=== PATIENT | female | born 1995 | race Caucasian/White ===

== ENCOUNTER 2019-01-07 13:02 | Inpatient (IN) | payer MEDICAID, OTHER ==
[~2019-01-07] VITALS: Ht 162.6 cm; Wt 79.1 kg
[2019-01-07 13:12] VITALS: Ht 162.6 cm; Wt 79.1 kg
[2019-01-07] MEDS ORDERED: PNV11TAB PO (13:12)
[2019-01-07 13:13] VITALS: BP 122/75; PULSE 92; RESP 19
--- NOTE | 2019-01-07 15:36 | TRIAGE ---
OB Triage Datetime Report Generated by CPN: 01/07/2019 15:36 Datetime: 01/07/2019 15:24 Labor Evaluation Frequency: OCCAS Monitor Mode: External Duration (sec)2399: 40-90 Quality: Mild Pattern: Normal: <= 5 Contractions in 10 Minutes Resting Tone Davy: Relaxed Heart Rate FHR Baseline Rate: 145 Monitor Mode: External US FHR Baseline Changes: No Baseline Change Variability: Moderate 6-25 bpm Accelerations: 15X15 Decelerations: None Category: Category I Datetime: 01/07/2019 14:20 Labor Evaluation Frequency: occas Monitor Mode: Internal Duration (sec)2399: 50-110 Quality: Mild Pattern: Normal: <= 5 Contractions in 10 Minutes Resting Tone Davy: Relaxed Heart Rate FHR Baseline Rate: 145 Monitor Mode: External US FHR Baseline Changes: No Baseline Change Variability: Moderate 6-25 bpm Accelerations: 15X15 Decelerations: None Category: Category I Datetime: 01/07/2019 13:36 Vaginal Exam Dilatation (cms): 0.0 Effacement (%): 0 Station: -3 Exam By: A GHUKASYAN Datetime: 01/07/2019 13:19 Assessment Type: Triage Maternal Assessment Level of Consciousness: Fully Conscious DTR's/Clonus: DTRs 2+; No Clonus Headache: Denies Blurred Vision: No Respiratory Effort: Unlabored; Regular Rhythm; Equal Expansion Breath Sounds, Left: Clear and Equal Breath Sounds, Right: Clear and Equal Nausea/Vomiting: Denies RUQ Epigastric Pain: Denies Lower Extremities Edema: None Degree: None Upper Extremities Edema: None Degree: None Facial Edema: None Fall Risk Assessment History of Falling: (0) No Secondary Diagnosis: (0) No Ambulatory Aid: (0) Bedrest/Nurse Assist IV Therapy: (0) No Gait: (0) Normal/Bedrest/Immobile Mental Status: (0) Oriented to Own Ability Fall Score: 0 Fall Risk Score Definition: No Risk: No action required Labor Evaluation Frequency: occas Monitor Mode: External Duration (sec)2399: 50-90 Quality: Mild Pattern: Normal: <= 5 Contractions in 10 Minutes Resting Tone Davy: Relaxed Heart Rate FHR Baseline Rate: 150 Monitor Mode: External US Variability: Moderate 6-25 bpm Accelerations: 15X15 Decelerations: None Category: Category I Datetime: 01/07/2019 13:18 Time of Arrival: 01/07/2019 12:35 EGA: 40.1 Arrived By: Ambulatory Arrived From: Home Chief Complaint: post dates Movement: Present Contractions: Denies/Absent Rupture of Membranes: Denies Vaginal Bleeding: None Vaginal Discharge: Denies Recent Sexual Intercouse: Denies Abdominal Trauma: Not Applicable Patient Complaints: Other Time Provider Notified: 01/07/2019 13:33 Provider Notified: DR VICTOR Initial Plan: nst
[2019-01-07] MEDS ORDERED: IBUPROFEN 600 MG TAB PO PRN (17:00)
[2019-01-07] MEDS ORDERED: METHYLERGONOVINE 0.2 MG INJ IM PRN (17:00)
[2019-01-07] MEDS ORDERED: OXYTOCIN 30 UNITS/LR 500 ML IV SCH ×2 (17:00)
[2019-01-07] MEDS ORDERED: OXYTOCIN 30 UNITS/LR 500 ML IV PRN (17:00)
[2019-01-07] MEDS ORDERED: BUTORPHANOL 2 MG INJ IV PRN (17:00)
[2019-01-07] MEDS ORDERED: CARBOPROST 250 MCG INJ IM PRN (17:00)
[2019-01-07] MEDS ORDERED: MISOPROSTOL 200 MCG TAB PR PRN (17:00)
[2019-01-07] MEDS ORDERED: LIDOCAINE 1% (MPF) 30 ML INJ INJ PRN (17:00)
[2019-01-07] MEDS: LACTATED RINGER'S 1,000 ML IV SCH ×2 (17:25→23:32)
[2019-01-08] MEDS: MISOPROSTOL 50 MCG CAPSULE PO SCH ×5 (05:52→21:00)
[2019-01-08] MEDS: LACTATED RINGER'S 1,000 ML IV SCH ×3 (07:11→21:22)
[2019-01-08] MEDS ORDERED: MISOPROSTOL 50 MCG CAPSULE PO SCH ×2 (09:00)
[2019-01-08] MEDS ORDERED: OXYTOCIN 30 UNITS/LR 500 ML IV SCH (19:00)
--- NOTE | 2019-01-09 00:54 | PREAC ---
Date/Time of Note Date/Time of Note DATE: 01/09/19 TIME: 00:53 Anesthesia Eval and Record Evaluation Time Pre-Procedure Interview DATE: 01/09/19 TIME: 00:53 Age 23 Sex female NPO: 8 hrs Preoperative diagnosis Planned procedure labor epidural Past Medical History Past Medical History: Includes : : (2), Para: (0), Gestational age: (40.3) Surgery & Anesthesia Issues No known issue Meds Anticoagulation: No Beta Edilberto within 24 hr: No Reason Beta Edilberto not given: Pt. not on B-Edilberto Reported Medications [id number] ( 19) 1 Each Tablet, 1 TAB PO DAILY, TAB 01/07/19 Current Medications Lactated Ringer's 1,000 ml @ 125 mls/hr Q8H IV Last administered on 01/08/19at 21:22; Admin Dose 125 MLS/HR; Start 01/07/19 at 16:46 Butorphanol Tartrate (Stadol) 2 mg Q2H PRN IV .PAIN SCALE 6-10 Last administered on 01/08/19at 21:29; Admin Dose 2 MG; Start 01/07/19 at 17:00 Lidocaine (Xylocaine 1% (Mpf)) 30 ml ONCE PRN INJ .EPISIOTOMY; Start 01/07/19 at 17:00 Oxytocin/Lactated Ringer's 500 ml @ 500 mls/hr ONCE POST IV ; Start 01/07/19 at 17:00 Oxytocin/Lactated Ringer's 500 ml @ 125 mls/hr POST IV ; Start 01/07/19 at 17:00 Ibuprofen (Motrin) 600 mg ONCE PRN PO .PAIN 1-5; Start 01/07/19 at 17:00 Oxytocin/Lactated Ringer's 500 ml @ 0 mls/hr ONCE PRN IV .VAGINAL BLEEDING; Start 01/07/19 at 17:00 Methylergonovine Maleate (Methergine) 0.2 mg ONCE PRN IM .VAGINAL BLEEDING; Start 01/07/19 at 17:00 Carboprost Tromethamine (Hemabate) 250 mcg ONCE PRN IM .VAGINAL BLEEDING; Start 01/07/19 at 17:00 Misoprostol (Cytotec) 1,000 mcg ONCE PRN SC .VAGINAL BLEEDING; Start 6/1/19 at 17:00 Misoprostol (Cytotec 50 Mcg Capsule) 50 mcg Q4 PO Last administered on 01/08/19at 14:55; Admin Dose 50 MCG; Start 01/08/19 at 05:39; Stop 01/09/19 at 01:01 Oxytocin/Lactated Ringer's 500 ml @ 0 mls/hr Q0M IV Last administered on 01/08/19at 19:46; Admin Dose 1 MLS/HR; Start 01/08/19 at 19:00 Meds reviewed: Yes Allergies Coded Allergies: No Known Allergy (Unverified , 01/07/19) Allergies Reviewed: Yes Labs/Studies Labs Reviewed: Reviewed by anesthesiologist Result Diagram: 01/07/19 1823 test: N/A Pre-procedure Exam Last vitals Vital Signs Date Temp Pulse Resp B/P (MAP) Pulse Ox O2 O2 Flow FiO2 Time Delivery Rate 01/07/19 98.6 92 19 122/75 Room Air 13:13 (91) Airway: Adequate mouth opening, Adequate thyromental dist Mallampati: Mallampati II Teeth: Normal Lung: Normal Heart: Normal ASA Physical Status ASA physical status: 2 Emergency: None Planned Anesthetic Neuraxial: Epidural Planned Pain Management Epidural, Parenteral pain med Pre-operative Attestations Prior to commencing anesthesia and surgery, the patient was re-evaluated, there was verification of: *The patient's identity *The results of appropriate recent lab work and preoperative vital signs *The above evaluation not changing prior to induction *Anesthetic plan, risk benefits, alternative and complications discussed with patient/family; questions answered; patient/family understands, accepts and wishes to proceed. MOY MINAYA MD Jan 09, 2019 00:54
[2019-01-09] MEDS ORDERED: FENTAnyl 2MCG/ML-ROPIV 0.2% 100 ML ONE (00:57)
[2019-01-09] MEDS ORDERED: FENTAnyl 2MCG/ML-ROPIV 0.2% 100 ML BAG EPI SCH (01:00)
[2019-01-09] MEDS ORDERED: ONDANSETRON 4 MG INJ IV PRN ×2 (01:00→08:00)
[2019-01-09] MEDS: MISOPROSTOL 50 MCG CAPSULE PO SCH (01:00)
[2019-01-09] MEDS ORDERED: NALOXONE (0.4 MG/ML) INJ IV PRN (01:00)
[2019-01-09] MEDS ORDERED: DIPHENHYDRAMINE 50 MG INJ IV PRN (01:00)
--- NOTE | 2019-01-09 02:13 | PAC ---
Date/Time of Note Date/Time of Note DATE: 01/09/19 TIME: 02:12 Post-Anesthesia Notes Post-Anesthesia Note Last documented vital signs Vital Signs Date Temp Pulse Resp B/P (MAP) Pulse Ox O2 O2 Flow FiO2 Time Delivery Rate 01/07/19 98.6 92 19 122/75 Room Air 13:13 (91) Activity: WNL Respiratory function: WNL Cardiovascular function: WNL Mental status: Baseline Pain reasonably controlled: Yes Hydration appropriate: Yes Nausea/Vomiting absent: Yes Comments BP: 122/64 HR: 78 RR: 15 T: 98.5 SaO2: 100% MOY MINAYA MD Jan 09, 2019 02:13
[2019-01-09] MEDS: LACTATED RINGER'S 1,000 ML IV SCH (02:21)
--- NOTE | 2019-01-09 06:13 | PREOPHP ---
DATE OF ADMISSION: 01/07/2019 HISTORY OF PRESENT ILLNESS: This is a 23-year-old lady, 2, para 0 with 1 . Her EDC is 01/06/2019, at 40 and for 1/7 weeks, admitted to labor and delivery area to rule out labor. She h ad care at Dr. Hernandez's office and the care was uneventful. PAST PERSONAL HISTORY: No history of diabetes, TB, asthma. ALLERGIES: NO ALLERGIES. SOCIAL HISTORY: The patient does not smoke. She does not drink. MEDICATIONS: She does not take any drugs except her iron and vitamins. GYNECOLOGIC HISTORY: She had menarche at the age of 11, every 28 days interval, 3 to 4 days duration , and moderate in amount. FAMILY HISTORY: Noncontributory. OBSTETRICAL HISTORY: She is 2, para 0. She had 1 . REVIEW OF SYSTEMS: CARDIOVASCULAR: No chest pains. RESPIRATORY: No cough. GASTROINTESTINAL: No diarrhea, no vomiting. GENITOURINARY: No dysuria. PHYSICAL EXAMINATION: GENERAL: Reveals a conscious, coherent lady and in not acute distress. VITAL SIGNS: Her blood pressure 120/80, pulse rate 80 per minute, respirations 16 per minute. BREASTS, HEART AND LUNGS: Within normal limits. ABDOMEN: Soft, fundic height 39 cm. heart tones 140 per minute. PELVIC: On admission done by nurse revealed the cervix to be closed, station -3 in cephalic presenta tion with the bag of water intact. EXTREMITIES: No pedal edema. ADMITTING DIAGNOSIS: A 40 and 1/7 weeks intrauterine in very early labor. The patient had an ultrasound done and the estimated weight was 4062 grams. The plans of delivery were explai yissel to the patient by me over the phone and by the nurse asked to go for vaginal delivery. The risks , benefits, and alternatives to vaginal delivery and was explained to both of them and the risks of shoulder dystocia as well was explained to them. The risks of explained to them a s well. Both the patient and the wanted to go to try for a vaginal delivery. As mentioned t he nurse had explained to them and had written about that they understood about the risks of shoulder dystocia. They understand and they like to take the risks. So the patient was observed at first fo r progress since on admission, she was having contractions, so she was not given any medication for h er contraction, and then during the night, she was observed, and in the morning since the contraction s had spaced out, in the morning on January 08, she was started on Cytotec. She received 3 doses of Cy totec, and the last dose of Cytotec was on January 08 at 3:00 p.m. When I checked her at 4:25 p.m., Ju , when I did a pelvic exam, she was 4 cm dilated, 100% effaced, station 0 with the bag of water intact. Good blood issue was noted. The patient and the were advised that I should rupture d the bag of water and number one to check for the type of amniotic fluid she had and to be started o n Pitocin augmentation. Pitocin augmentation cannot be started until 7:00 p.m. The patient and the refused to have the ruptured bag of water. They like to continue with conservative managemen t, so she was continued on conservative management. Dr. Lau has evaluated the patient at 9:00 p.m. o n January 08, she was still 4 cm dilated. She was having pain medication and she was offered epidural. At this point of time, the case was endorsed with Dr. Lau for further care and for delivery. The w hole history was explained to the patient about shoulder dystocia. Dictated By: DELVIS NUNEZ/NTS Conf#: [id number] DID#: [id number] CC: CARLOTTA HERNANDEZ MD;*EndCC*
[2019-01-09] MEDS ORDERED: MINERAL OIL LIGHT 10 ML VIAL TOP PRN (06:30)
[2019-01-09] MEDS: LACTATED RINGER'S 1,000 ML IV* SCH ×3 (08:00→23:52)
[2019-01-09] MEDS ORDERED: CARBOPROST 250 MCG INJ IM PRN (08:00)
[2019-01-09] MEDS ORDERED: METHYLERGONOVINE 0.2 MG INJ IM PRN (08:00)
[2019-01-09] MEDS ORDERED: DIBUCAINE 1% 30 GM OINT TOP PRN (08:00)
[2019-01-09] MEDS ORDERED: OXYTOCIN 30 UNITS/LR 500 ML IV SCH (08:00)
[2019-01-09] MEDS ORDERED: MISOPROSTOL 200 MCG TAB PR PRN (08:00)
[2019-01-09] MEDS ORDERED: BENZOCAINE 20% 56 ML SPRAY TOP PRN (08:00)
[2019-01-09] MEDS ORDERED: WITCH HAZEL/GLYCERIN PAD PR PRN (08:00)
[2019-01-09] MEDS ORDERED: LANOLIN HPA 1 PKT TOP PRN (08:00)
[2019-01-09] MEDS ORDERED: MAGNESIUM HYDROXIDE 30ML CUP PO PRN (08:00)
[2019-01-09] MEDS ORDERED: ACETAMINOPHEN 325 MG TAB PO PRN ×2 (08:00)
[2019-01-09] MEDS ORDERED: OXYTOCIN 30 UNITS/LR 500 ML IV PRN (08:00)
[2019-01-09] MEDS ORDERED: SENNA/DOCUSATE NA (8.6MG/50MG) TAB PO PRN (08:00)
--- NOTE | 2019-01-09 08:00 | LDN ---
Date/Time of Note Date/Time of Note DATE: 01/09/19 TIME: 07:58 Delivery Summary Weeks of Gestation Term gestation Placenta Delivered: Spontaneously Meconium: none Episiotomy: Yes Laceration repair: Medial episiotomy repaired with 2-0 Vicryl sutures in layered fashion Anesthesia type: Epidural Estimated blood loss: 100 Sponge & Needle done & correct: Yes All needle counts correct: Yes Any foreign bodies felt in the: No Infant Delivery Information Sex Sex: male (9) Apgars 1 Minute: 9 5 Minute: 9 Suctioning Nose & mouth suctioned at nhi: Yes Delee suction performed: No Umbilical Cord Umbilical cord with: 3 Vessels Cord presentations: no nuchal cord Cord Blood was obtained: Yes Mother & Baby Disposition Disposition Compound presentation Baby's weight 7 pounds 15 ounces/ 3595 g Mom & Baby to Maternity; Good: Yes Baby to NICU: No Copies To: CC: DELVIS VICTOR MD ; AUSTIN OAKLEY MD Jan 09, 2019 08:00
[2019-01-09 10:00] VITALS: BP 113/75; PULSE 96; RESP 19
[2019-01-09 12:00] VITALS: BP 108/69; PULSE 82; RESP 20
[2019-01-09 15:50] VITALS: BP 122/78; PULSE 112; RESP 18
[2019-01-09] MEDS: IBUPROFEN 600 MG TAB PO PRN ×2 (17:49→23:58)
[2019-01-09 20:40] VITALS: BP 123/80; PULSE 115; RESP 17
[2019-01-09] MEDS: DOCUSATE SODIUM 100 MG CAP PO SCH (21:56)
[2019-01-10 04:00] VITALS: BP 103/57; PULSE 82; RESP 18
[2019-01-10] MEDS: LACTATED RINGER'S 1,000 ML IV* SCH ×2 (06:05→16:00)
[2019-01-10] MEDS: IBUPROFEN 600 MG TAB PO PRN ×2 (06:06→13:39)
[2019-01-10 08:00] VITALS: BP 102/59; PULSE 75; RESP 20
[2019-01-10] MEDS: DOCUSATE SODIUM 100 MG CAP PO SCH ×2 (09:25→21:52)
[2019-01-10] MEDS ORDERED: BISACODYL 10 MG SUPP PR ONE (12:30)
[2019-01-10] MEDS ORDERED: MAGNESIUM HYDROXIDE 30ML CUP PO ONE (12:30)
[2019-01-10] MEDS ORDERED: MEASLES,MUMPS,RUBELLA VACCINE INJ SC* ONE (14:30)
--- NOTE | 2019-01-10 15:04 | PN ---
Date/Time of Note Date/Time of Note DATE: 01/10/19 TIME: 15:02 Assessment/Plan VTE Prophylaxis Risk score (from Ns)>0 risk: 1 SCD applied (from Ns): No SCD contraindicated: low risk/ambulating Pharmacological prophylaxis: NA/contraindicated Pharm contraindication: low risk/ambulating Lines/Catheters IV [facility] Type ([facility] Peripheral IV Assessment/Plan Assessment/Plan POST DAY 1 CHRONIC IRON DEFICIENCY ANEMIA HOME TOMORROW RETURN TO CLINIC IN 2 WEEKS CONTINUE WITH VITAMINS OD AND FERROUS SULFATE PO TID DIET ADVISED COUNSELED INSTRUCTED CALL OFFICE IF THERE IS ANY PROBLEMS OR CONCERN Result Diagram: 01/10/19 0721 Results 24hrs Laboratory Tests Test 01/10/19 07:21 White Blood Count 10.5 # Red Blood Count 3.44 #L Hemoglobin 10.6 L Hematocrit 32.3 L Mean Corpuscular Volume 93.9 Mean Corpuscular Hemoglobin 30.8 Mean Corpuscular Hemoglobin Concent 32.8 Red Cell Distribution Width 13.7 Platelet Count 150 Mean Platelet Volume 11.0 H Immature Granulocytes % 0.400 Neutrophils % 70.3 Lymphocytes % 20.4 Monocytes % 7.4 Eosinophils % 1.1 Basophils % 0.4 Nucleated Red Blood Cells % 0.0 Immature Granulocytes # 0.040 H Neutrophils # 7.4 Lymphocytes # 2.1 Monocytes # 0.8 Eosinophils # 0.1 Basophils # 0.0 Nucleated Red Blood Cells # 0.0 Subjective 24 Hr Interval Summary Free Text/Dictation FEELS GOOD, GOOD URINE OUTPUT, GOOD BOWEL MOVEMENT Exam/Review of Systems Exam Vitals Vital Signs Date Temp Pulse Resp B/P (MAP) Pulse Ox O2 O2 Flow FiO2 Time Delivery Rate 01/10/19 98.4 75 20 102/59 Room Air 08:00 (73) Intake and Output 01/09/19 01/09/19 01/10/19 1515:00 23:00 07:00 IntakeIntake Total 500 ml 300 ml 400 ml OutputOutput Total 900 ml BalanceBalance -400 ml 300 ml 400 ml Exam VITAL SIGNS STABLE: YES AFEBRILE: YES BREAST NOT ENGORGED, NON-TENDER, NO APPRECIABLE MASS: YES LUNGS CLEAR, NO RALES, WHEEZES, RHONCHI: YES SINUS RHYTHM WITHOUT MURMUR: YES ABDOMEN: NON-TENDER FUNDUS: BELOW UMBILICUS BOWEL SOUNDS: PRESENT UTERUS: FIRM TEAR HEALING WELL LOCHIA: LIGHT DEEP TENDON REFLEXES: 0 EXTREMITIES: NO CALF TENDERNESS EDEMA SCALE: NONE Results Results 24hrs Laboratory Tests Test 01/10/19 07:21 White Blood Count 10.5 # Red Blood Count 3.44 #L Hemoglobin 10.6 L Hematocrit 32.3 L Mean Corpuscular Volume 93.9 Mean Corpuscular Hemoglobin 30.8 Mean Corpuscular Hemoglobin Concent 32.8 Red Cell Distribution Width 13.7 Platelet Count 150 Mean Platelet Volume 11.0 H Immature Granulocytes % 0.400 Neutrophils % 70.3 Lymphocytes % 20.4 Monocytes % 7.4 Eosinophils % 1.1 Basophils % 0.4 Nucleated Red Blood Cells % 0.0 Immature Granulocytes # 0.040 H Neutrophils # 7.4 Lymphocytes # 2.1 Monocytes # 0.8 Eosinophils # 0.1 Basophils # 0.0 Nucleated Red Blood Cells # 0.0 Medications Medication Current Medications Lactated Ringer's 1,000 ml @ 125 mls/hr Q8H IV* ; Start 01/09/19 at 08:00 Acetaminophen (Tylenol Tab) 650 mg Q4H PRN PO .PAIN 1-5 Last administered on 01/09/19at 16:49; Admin Dose 650 MG; Start 01/09/19 at 08:00 Ondansetron HCl (Zofran Inj) 4 mg Q6H PRN IV NAUSEA/VOMITING; Start 01/09/19 at 08:00 Senna/Docusate Sodium (Senokot-S) 1 tab BID PRN PO .CONSTIPATION; Start 01/09/19 at 08:00 Magnesium Hydroxide (Milk Of Mag) 30 ml Q12H PRN PO .CONSTIPATION; Start 01/09/19 at 08:00 Witch Glenys/ Glycerin (Tucks Pads) 1 pad BEDSIDE MEDICATION PRN AL .HEMORRHOID/EPISIOTOMY PAIN Last administered on 01/09/19at 16:48; Admin Dose 40 PAD; Start 01/09/19 at 08:00 Benzocaine (Dermoplast [place]) 1 spray BEDSIDE MEDICATION PRN TOP .HEMMORHOID/EPISIOTOMY PAIN Last administered on 01/09/19at 11:39; Admin Dose 56 SPRAY; Start 01/09/19 at 08:00 Dibucaine (Nupercainal) 1 applic BEDSIDE MEDICATION PRN TOP .HEMMOR HOID/EPISIOTOMY; Start 01/09/19 at 08:00 Lanolin (Lanolin Hpa) 1 applic BEDSIDE MEDICATION PRN TOP .NIPPLES Last administered on 01/09/19at 11:39; Admin Dose 1 APPLIC; Start 01/09/19 at 08:00 Acetaminophen (Tylenol Tab) 650 mg Q4H PRN PO .TEMP Last administered on 01/09/19at 22:46; Admin Dose 650 MG; Start 01/09/19 at 08:00 Oxytocin/Lactated Ringer's 500 ml @ 0 mls/hr ONCE PRN IV .VAGINAL BLEEDING; St art 01/09/19 at 08:00 Methylergonovine Maleate (Methergine) 0.2 mg ONCE PRN IM .VAGINAL BLEEDING; Sta rt 01/09/19 at 08:00 Carboprost Tromethamine (Hemabate) 250 mcg ONCE PRN IM .VAGINAL BLEEDING; Start 01/09/19 at 08:00 Misoprostol (Cytotec) 1,000 mcg ONCE PRN AL .VAGINAL BLEEDING; Start 01/09/19 at 08:00 Ibuprofen (Motrin) 600 mg Q6H PRN PO PAIN Last administered on 01/10/19 13:39; Admin Dose 600 MG; Start 01/09/19 at 08:00 Docusate Sodium (Colace) 100 mg BID PO Last administered on 01/10/19 09:25; Admin Dose 100 MG; Start 01/09/19 at 21:00 DELVIS VICTOR MD Jan 10, 2019 15:04
[2019-01-10 16:00] VITALS: BP 113/66; PULSE 89; RESP 19
[2019-01-10 20:00] VITALS: BP 119/63; PULSE 97; RESP 18
[2019-01-11 03:34] VITALS: BP 112/65; PULSE 91; RESP 18
[2019-01-11] MEDS: IBUPROFEN 600 MG TAB PO PRN (04:32)
[2019-01-11] MEDS: LACTATED RINGER'S 1,000 ML IV* SCH ×2 (05:34)
[2019-01-11 08:30] VITALS: BP 113/70; PULSE 78; RESP 18
[2019-01-11] MEDS: DOCUSATE SODIUM 100 MG CAP PO SCH (09:00)
--- NOTE | 2019-01-12 17:33 | DELSUM ---
Delivery Summary A-C Datetime Report Generated by CPN: 01/12/2019 17:32 DELIVERY PERSONNEL Transplant Surgeon: ANKUSH, HELEN MATERNAL INFORMATION Delivery Anesthesia: Epidural Medications in Delivery: LR W/30 UNITS PITOCIN Delivery QBL (ml): 100 Placenta Cultured: No Maternal Complications: None LABOR SUMMARY EDC: 01/06/2019 00:00 No. Babies in Womb: 1 Attempted: No Labor Anesthesia: None LABOR INFORMATION Reason for Induction: Postterm Onset of Labor: 01/08/2019 05:52 Complete Dilatation: 01/09/2019 07:10 Cervical Ripening Agents: Cytotec @ Oxytocin: Induction Group B Beta Strep: Negative Antibiotics # of Doses: 0 Steroids Given: None Reason Steroids Not Administered: Not Applicable MEMBRANES Membranes Rupture Method: Spontaneous Rupture of Membranes: 01/08/2019 20:10 Length of Rupture (hr): 11.32 Amniotic Fluid Color: Clear Amniotic Fluid Amount: Large Amniotic Fluid Odor: None STAGES OF LABOR Stage 1 hr: 25 Stage 1 min: 18 Stage 2 hr: 0 Stage 2 min: 19 Stage 3 hr: 0 Stage 3 min: 2 Total Time in Labor hr: 25 Total Time in Labor min: 39 VAGINAL DELIVERY Episiotomy: Median Laceration Extension: N/A Laceration Type: None Laceration Repair: Yes Initial Vag Sponge Count: 10 Final Vag Sponge Count: 10 Initial Vag Sharps Count: 1+3 Final Vag Sharps Count: 4 Sponge Count Correct: Yes; Vaginal Sweep Performed Sharps Count Correct: Yes BABY A INFORMATION Infant Delivery Date/Time: 01/09/2019 07:29 Method of Delivery: Vaginal Born in Route : No : N/A Forceps: N/A Vacuum Extraction: N/A Shoulder Dystocia : No SHOULDER DYSTOCIA BABY A Delivery Date/Time: 01/09/2019 07:29 PRESENTATION/POSITION BABY A Presentation: Cephalic Cephalic Presentation: Vertex Breech Presentation: N/A PLACENTA INFORMATION BABY A Placenta Delivery Time : 01/09/2019 07:31 Placenta Method of Delivery: Spontaneous Placenta Status: Delivered SCORES BABY A Heart Rate 1 min: >100 bpm Resp Effort 1 min: Good Cry Reflex Irritability 1 min: Cough/Sneeze/Pulls Away Muscle Tone 1 min: Active Motion Color 1 min: Body [place], Extremit Blue Resuscitation Effort 1 min: Tactile Stimulation SCORE 1 MIN: 9 Heart Rate 5 min: >100 bpm Resp Effort 5 min: Good Cry Reflex Irritability 5 min: Cough/Sneeze/Pulls Away Muscle Tone 5 min: Active Motion Color 5 min: Body [place], Extremit Blue Resuscitation Effort 5 min: Tactile Stimulation SCORE 5 MIN: 9 INFANT INFORMATION BABY A Gestational Age at Delivery: 40.1 Gestational Status: Full Term- 39- 40.6 Weeks Outcome : Liveborn Condition : Stable Infant Sex: Male IDENTIFICATION/MEDS BABY A ID Band Number: [id number] ID Band Location: Right Leg; Left Arm Sensor Applied: Yes Sensor Number: [id number] Sensor Location : Cord Clamp Vitamin K Given : Not Given Erythromycin Given: Not Given WEIGHT/LENGTH BABY A Infant Birthweight (gm): 3595 Weight (lb): 7 Weight (oz): 15 Length (in): 21.00 Infant Length (cm): 53.34 CORD INFORMATION BABY A No. Cord Vessels: 3 Nuchal Cord : N/A Cord Blood Taken: Yes Banking/Donate Info: NO Suction: Mouth; Nose ASSESSMENT BABY A Infant Complications: None Physical Findings at Delivery: Caput Succedaneum Infant Respirations: Appears Normal Central Services Tech/ALS Called : No Infant Care By: RN Transferred To: Remains with Mother
--- NOTE | 2019-01-15 17:11 | DS ---
DATE OF ADMISSION: 01/07/2019 DATE OF DISCHARGE: 01/11/2019 This is a 23-year-old lady, 2, para 0, with 1 , EDC 01/06/2019, at 40 and 1/7 weeks, admitted to labor and delivery area to rule out labor. HISTORY OF PRESENT ILLNESS: See dictated history and physical. PHYSICAL EXAMINATION: See dictated history and physical. ADMITTING DIAGNOSIS: 40 and 1/7 weeks intrauterine in very early labor. PLANS OF DELIVERY: See dictated history and physical. PROGRESS OF LABOR: See dictated history and physical. In general, the patient did like anything to be done, like rupturing the bag of water, but then she s pontaneously ruptured her bag of water and delivered a baby boy, 9 and 9, over a midline episio nicholas with an epidural anesthesia, and she was delivered by Dr. Hutton. She did have good course. She was on general diet. She had good bowel movement . She was discharged home on the second day on general diet and activity was restricted. She was discharged home in good and stable condition, and she was told to continue to take her iron and vitamins at home. Hem atocrit on discharge 32.3, hemoglobin 10.6. FINAL DIAGNOSIS:. 40 and 3/7 weeks intrauterine , in labor and delivered. Dictated By: DELVIS VICTOR MD NS/NTS Conf#: [id number] DID#: [id number] CC: DELVIS VICTOR MD; CARLOTTA HERNANDEZ MD;*EndCC*
== END 2019-01-11 16:30 | disposition home or self-care (01) | DRG 807 ==
LOC: L-D 13:02 → OBT 13:02 → L-D 15:15 → OBT 15:15 → L-D 16:17 → PP1 01-09 10:06
PROVIDERS: ADMIT Obstetrics & Gynecology; ATTEND Obstetrics & Gynecology
PROC: 10E0XZZ Delivery of Products of Conception, External Approach (ICD-10-PCS; principal; 2019-01-09)
PROC: 0W8NXZZ Division of Female Perineum, External Approach (ICD-10-PCS; 2019-01-09)
DX: O48.0 Post-term pregnancy (principal); Z37.0 Single live birth; Z3A.40 40 weeks gestation of pregnancy
CPT/HCPCS: 62322; 76815; 76818; 85025; 85610; 85730; 86592; 86850; 86870; 86885; 86900; 86901; 87340; G0463; J0595; J2405; J2590; J2790; J3010; J7120

== ENCOUNTER 2019-02-08 21:03 | Emergency (ER) | payer OTHER ==
[~2019-02-08] VITALS: Ht 160 cm; Wt 66.5 kg
[~2019-02-08 21:03] MED LIST: PNV11TAB PO
[2019-02-08 21:12] VITALS: BP 136/54; PULSE 63; RESP 18; Ht 160 cm; Wt 66.5 kg
--- NOTE | 2019-02-09 00:46 | ERD ---
ER Documentation Chief Complaint Chief Complaint STATES SHE FELL RECENTLY AND WANTS TO CHECK EPISIOTOMY SUTURES HPI This is a 23-year-old female presents to the emergency department stating that she wants her episiotomy site sutures to be checked. Stated that she tripped, fell, last Wednesday, and felt pain to her suture site. She was able to walk after the injury. Stated that she is breast-feeding. LMP: Stated it was April 01, 2018. G2, P1 M1. Denies headache, head injury, loss of consciousness, dizziness, neck pain, neck stiffness, throat pain, difficulty swallowing, difficulty breathing lying flat, shoulder pain, chest pain, back pain, abdominal pain, nausea, vomiting, constipation, diarrhea, or possibility being , loss of bowel and bladder control, trauma, injury, falls, difficulty walking due to pain, numbness or tingling sensation, calf pain, recent travel, recent major surgery in the last 3 weeks, calf pain, recent long travel, recent exposure to any illness, recent antibiotic use in the last 3 months, fever, chills, seizures. Past medical history: Denies. Surgical history: Denies. Social: Denies smoking, use of alcoholic beverages, use of illegal drugs. ROS All systems reviewed and are negative except as per history of present illness. Medications Home Meds Active Scripts Acetaminophen* (Tylophen*) 500 Mg Capsule, 1 CAP PO Q6H PRN for PAIN AND OR ELEVATED TEMP, #20 CAP Prov:PASILABANMACAR F 02/09/19 Cephalexin* (Keflex*) 500 Mg Capsule, 500 MG PO TID for 7 Days, CAP Prov:WALEILABANMACAR F 02/09/19 Reported Medications [id number] ( 19) 1 Each Tablet, 1 TAB PO DAILY, TAB 01/07/19 Allergies Allergies: Coded Allergies: No Known Allergy (Unverified , 01/07/19) PMhx/Soc Medical and Surgical Hx: pt denies Medical Hx, pt denies Surgical Hx Hx Alcohol Use: No Hx Substance Use: No Hx Tobacco Use: No Smoking Status: Never smoker Physical Exam Vitals Physical Exam Const: No acute distress Head: Atraumatic Eyes: Normal Conjunctiva ENT: Normal External Ears, Nose and Mouth. Neck: Full range of motion. No meningismus. Resp: Clear to auscultation bilaterally Cardio: Regular rate and rhythm, no murmurs Abd: Soft, non tender, non distended. Normal bowel sounds. : Examined with female depositing machine operator, Lynsey GARCIA. No lesions. No lacerations. No bleeding. Skin: No petechiae or rashes Back: No midline or flank tenderness. Bilateral hips are stable and unremarkable. Able to bear weight on left lower extremity. Able to bear weight on right lower extremity. Negative straight leg test bilaterally. Negative cross straight leg test bilaterally. No calf tenderness bilaterally. Symmetrical knees. Capillary refills to bilateral lower extremities are less than 2 seconds. No saddle anesthesia. No neurovascular deficits. Ambulatory with steady gait. Ext: No cyanosis, or edema Neur: Awake and alert. No neurological deficit. Psych: Normal Mood and Affect Results 24 hrs Laboratory Tests Test 02/09/19 00:58 02/09/19 01:11 Urine Color YELLOW Urine Clarity SLIGHTLY CLOUDY Urine pH 6.0 Urine Specific [place] 1.024 Urine Ketones TRACE mg/dL Urine Nitrite NEGATIVE mg/dL Urine Bilirubin NEGATIVE mg/dL Urine Urobilinogen NEGATIVE mg/dL Urine Leukocyte Esterase 3+ Clay/ul Urine Microscopic RBC 10 /HPF Urine Microscopic WBC 32 /HPF Urine Squamous Epithelial Cells FEW /HPF Urine Mucus FEW /HPF Urine Yeast (Budding) FEW /HPF Urine Hemoglobin 1+ mg/dL Urine Glucose NEGATIVE mg/dL Urine Total Protein NEGATIVE mg/dl POC Beta HCG, Qualitative NEGATIVE Current Medications Medications Dose Sig/Herbert Start Time Status Last (Trade) Ordered Route PRN Stop Time Admin Dose Reason Admin 650 mg ONCE ONCE 02/09/19 DC 02/09/19 Acetaminophen PO 02:00 02/09/19 02:05 (Tylenol 02:01 Tab) Cephalexin 500 mg ONCE ONCE 02/09/19 DC 02/09/19 (Keflex) PO 02:00 02/09/19 02:06 02:01 Procedures/MDM Diagnostic tests: POC urine : Negative. Urinalysis: UTI. Treatment: Tylenol. Keflex. Re-evaluation: No episode of emesis here in the emergency department. Negative Ivey sign. Negative Crystal sign(heel-jar test). Negative Psoas sign. Negative Rovsing sign. No CVA tenderness. Able to jump 10 times without developing lower abdominal pain. Stated that she feels much better at this time and is ready to go home. Stated that she is comfortable to go home. Differential diagnosis I have low suspicion for pancreatitis, cholecystitis, diverticulitis, bowel obstruction, appendicitis, nephrolithiasis, pyelonephritis, obstructing kidney stones, septic stones, cauda equina syndrome. Final diagnosis: UTI. Prescription: Keflex. Tylenol. Follow-up with PCP in the next 24-48 hours. Follow-up with process control technician in the next 24 to 48 hours. Come back here in the emergency department for any new symptoms or any worsening symptoms. All questions and concerns were answered. Patient and family members verbalized understanding and agreed with plan of care. Hemodynamically stable on discharge. Departure Diagnosis: Primary Impression: Encounter for wound re-check Additional Impression: UTI (urinary tract infection) Condition: Stable Additional Instructions: Follow-up with PCP in the next 24-48 hours. Follow-up with process control technician in the next 24 to 48 hours. Come back here in the emergency department for any new s ymptoms or any worsening symptoms. OLEG MORRIS Feb 09, 2019 00:46
[2019-02-09] MEDS ORDERED: ACET500C5 PO (01:43)
[2019-02-09] MEDS ORDERED: CEPH-443 PO (01:43)
[2019-02-09] MEDS ORDERED: CEPHALEXIN 500 MG CAP PO ONE (02:00)
[2019-02-09] MEDS ORDERED: ACETAMINOPHEN 325 MG TAB PO ONE (02:00)
== END 2019-02-09 02:08 | disposition home or self-care (01) ==
LOC: FTE 21:03
DX: N39.0 Urinary tract infection, site not specified (principal)
CPT/HCPCS: 81001; 81025; 87086; Z7610; 99283